=== PATIENT | female | born 1965 | race Two or more races ===

== ENCOUNTER 2018-05-15 04:39 | Emergency (ER) | payer OTHER ==
[~2018-05-15] VITALS: Ht 157.5 cm; Wt 80.0 kg
[2018-05-15 04:40] VITALS: BP 158/98
[2018-05-15] MEDS ORDERED: BACITRACIN ZINC OINT 500U/GM, 0.9 GM ONE (04:57)
[2018-05-15] MEDS ORDERED: DIPH,PERTUSS(ACELL),TET VAC/PF 0.5 ML IM-VACC ONE ×2 (04:57→05:00)
[2018-05-15] MEDS ORDERED: LIDOCAINE 1%-EPI 1:100K, 30ML ONE (04:57)
[2018-05-15] MEDS ORDERED: LIDOCAINE 1%-EPI 1:100K, 20ML SQ ONE (05:00)
== END 2018-05-15 06:01 | disposition home or self-care (01) ==
LOC: ED 05:53
DX: S61.215A Laceration without foreign body of left ring finger without damage to nail, initial encounter (principal); X58.XXXA Exposure to other specified factors, initial encounter; Y93.89 Activity, other specified; Y99.0 Civilian activity done for income or pay; Y92.69 Other specified industrial and construction area as the place of occurrence of the external cause
CPT/HCPCS: 12001; 90471; 90715